=== PATIENT | male | born 1960 | race Caucasian/White ===

== ENCOUNTER 2022-09-16 12:57 | Outpatient (CLI) | payer OTHER, SELFPAY ==
--- NOTE | 2022-09-16 13:25 | ECG_ITS ---
Measurements Intervals [place] Rate: 73 P: 6 AR: 131 QRS: -12 QRSD: 94 T: 2 QT: 376 QTc: 415 Interpretive Statements SINUS RHYTHM NO PREVIOUS ECG AVAILABLE FOR COMPARISON Electronically Signed On 09-16-2022 15:32:21 CDT by Lisy Cosme M.D.
[2022-09-16 14:03] LABS: Anion Gap 12 mmol/L (8-16); Blood Urea Nitrogen 15 mg/dL (9-20); Calcium 8.9 mg/dL (8.4-10.2); Carbon Dioxide 23 mmol/L (22-30); Chloride 104 mmol/L (98-107); Estimated Glomerular Filt Rate > 60; Glucose 109 mg/dL (65-110); Potassium 4.3 mmol/L (3.4-5.0); Sodium 139 mmol/L (137-145)
== END 2022-09-16 12:58 | disposition home or self-care (01) ==
PROVIDERS: Referring Provider Urology; Visit Provider Anesthesiology
DX: Z01.818 Encounter for other preprocedural examination (principal); N35.919 Unspecified urethral stricture, male, unspecified site; I10 Essential (primary) hypertension; E11.9 Type 2 diabetes mellitus without complications
CPT/HCPCS: 36415; 80048; 87086; 87088; 93005

== ENCOUNTER 2022-09-21 01:59 | Day surgery (SDC) | payer OTHER, SELFPAY ==
[2022-09-15 15:05] VITALS: BMI 31.8
--- NOTE | 2022-09-15 15:48 | PC.NURSE ---
Report to the Outpatient Waiting Room, entrance under the green pavilion located off [facility], at time 0600 on date _09/21/22. Planned Procedure Time: _0730. Time changes happen often and if your time is changed the preop area will call you the afternoon before. - You and your visitor will be asked to self-screen and do not enter if you have any COVID symptoms. - A mask is optional within the hospital at this time. Patients may have clear liquids (water, carbonated beverages, clear teas, apple juice) until 3 hours prior to surgery with a maximum of 20 ounces. - No food from midnight until time of surgery - Infants may have breast milk until 4 hours before surgery, formula 6 hours prior to surgery. - Children will be allowed to drink immediately following surgery. If applicable, please bring a bottle or sippy cup to assist with drinking. Juice, water, soda, and popsicles are readily available. For infants on formula, please bring formula the day of surgery. Pacifiers are allowed. Take the following medications with a SIP of water the morning of surgery: n/a DO NOT STOP ANY OF YOUR OTHER PRESCRIPTION MEDICATIONS PRIOR TO SURGERY ?EXCEPT THE FOLLOWING Medications to discontinue per physician __vitamins, supplements Date to take last dose_09/18/22_ Please no make-up, nail pashto, hairspray, perfume, deodorant, or body powder the day of surgery. No jewelry (including any body piercings) or valuables the day of surgery, leave them at home. Please take a shower or bath the night before, or the morning of, surgery with an antibacterial soap. Wear comfortable, loose fitting clothing. Children are encouraged to wear pajamas. - Jewelry must be removed prior to entering the operating room. Rings and piercings that are not removed may be cut off. - The hospital will not accept responsibility for valuables. - Please leave all valuables, including medications, at home the day of surgery. If you are going home after surgery, a licensed ups driver must drive you home. - NO public transportation without another adult if you receive anesthesia. - We recommend that an adult stay with you for 24 hours following discharge. - We also recommend that you do not drive, make important decision, drink alcoholic beverages, or take any drugs that were not prescribed by your health care provider for at least 24 hours after your discharge time. For Pediatric surgeries, we recommend two adults accompany the child home. Follow any additional instructions given to you from your surgeon. If you or anyone in your household have experienced Covid symptoms in the past week, please notify your surgeon or the nurse liaison at the phone number below for possible testing. Telephone instructions given to Domo Noel and asked if any additional questions and then verbalized understanding. Patient advised to call surgeon office or pre surgery nurse liaison [phone] if any additional questions.
--- NOTE | 2022-09-20 14:25 | WPDANESEPPF ---
Anes - Initial Pre Proc Eval Procedure: Operation Date: 09/21/22 07:30 Proposed Procedures p Cystoscopy, Retrograde Urethrogram, Urethral Dilatation - Hong Brown MD Date/Time: 09/20/22 14:25 Surgeon: Hong Brown MD Pre Op Diagnosis: urethral stricture, bph Patient Data Age: 62 Gender: M Height: 1.73 m Weight: 95 kg Allergies Allergy/AdvReac Type Severity Reaction Status Date / Time No Known Allergies Allergy Verified 09/15/22 14:56 Home Medications Medication Instructions Recorded Confirmed Type finasteride 5 mg tablet 5 mg PO DAILY 09/15/22 09/15/22 History fluoxetine 40 mg capsule 40 mg PO DAILY 09/15/22 09/15/22 History lancets (Accu-Chek Fastclix Lancet 09/15/22 09/15/22 History Drum) lisinopril 40 mg tablet 40 mg PO DAILY 09/15/22 09/15/22 History metaxalone 800 mg tablet 800 mg PO DAILY 09/15/22 09/15/22 History metformin 500 mg tablet 1,000 mg PO BID 09/15/22 09/15/22 History multivitamin with minerals-folic 1 tablet PO DAILY 09/15/22 09/15/22 History acid 200 mcg chewable tablet (Adult Multivitamin Gummies) pantoprazole 20 mg tablet,delayed 20 mg PO DAILY 09/15/22 09/15/22 History release rosuvastatin 20 mg tablet 20 mg PO DAILY 09/15/22 09/15/22 History semaglutide 2 mg/dose (8 mg/3 mL) 2 mg subcut WEEKLY 09/15/22 09/15/22 History subcutaneous pen injector (Ozempic) vitamin B complex (B 1 tablet PO DAILY 09/15/22 09/15/22 History Complex-Vitamin B12 tablet) Results Review: All pre-operative results and documents have been reviewed as part of the pre-operative evaluation. [facility] Past Medical History Medical History (Updated 09/20/22 @ 14:26 by Suraj Allen MD) Chronic GERD Depression Diabetes HTN (hypertension) Hyperlipidemia Obesity STEPHEN (obstructive sleep apnea) Osteoarthritis Social History Social History Smoking packs per day: 1 Smoking cigarettes per day: 20.0 Years smoked: 10 Smoking pack-years: 10.00 Smoking status: Former smoker Tobacco type: cigarettes Alcohol intake: current Drinks per week: 2 Substance use: never Living arrangements: with family Spiritual care concerns: No Anes - Eval Final PreProcedure Day of Procedure 09/20/22 14:25 Patient weight: obese Heart: regular rate and rhythm Lungs: clear to auscultation and normal air movement Airway: Mallampati scale class II Neurological: alert and oriented Last oral intake: >/= 8 hours ASA classification: III Emergent: no Anesthetic plan: proceed Anesthesia type and monitoring: general LMA Results Review: All pre-operative results and documents have been reviewed as part of the pre-operative evaluation. Informed Consent: The patient's anesthetic plan and its attendant risks and benefits were discussed with the patient/family/POA. Questions were solicited and answers provided to the satisfaction of the patient/family/POA.
[2022-09-21] VITALS (7 sets, daily range): BP systolic 119–144; BP diastolic 72–92; PULSE 75–81; RESP 12–14; TEMP 36.1–36.2; O2SAT 96–100
--- NOTE | ~2022-09-21 | XR_ITS ---
EXAMINATION: XR urethrocystogram DATE: 09/21/2022 08:04 INDICATION: Urethral stricture. TECHNIQUE: 46 intraoperative fluoroscopic images of the pelvis were obtained. I was not present. Fluo roscopy exposure time was 43 seconds. COMPARISON: None. FINDINGS: There is a stricture of the bulbar urethra. Images demonstrate a dilator in the urethra. IMPRESSION: 1. Stricture of the bulbar urethra status post dilatation. Reviewed, dictated and finalized at location A.
[2022-09-21 06:39] LABS: Glucose Point of Care 93 mg/dl (65-105)
--- NOTE | 2022-09-21 06:52 | P.PNAN_ITS ---
Anes - Initial Pre Proc Eval Procedure: Operation Date: 09/21/22 07:30 Proposed Procedures p Cystoscopy, Retrograde Urethrogram, Urethral Dilatation - Hong Brown MD Date/Time: 09/21/22 06:52 Surgeon: Hong Brown MD Pre Op Diagnosis: urethral stricture, bph Patient Data Age: 62 Gender: M Height: 1.73 m Weight: 95 kg Allergies Allergy/AdvReac Type Severity Reaction Status Date / Time No Known Allergies Allergy Verified 09/15/22 14:56 Home Medications Medication Instructions Recorded Confirmed Type finasteride 5 mg tablet 5 mg PO DAILY 09/15/22 09/15/22 History fluoxetine 40 mg capsule 40 mg PO DAILY 09/15/22 09/15/22 History lancets (Accu-Chek Fastclix Lancet 09/15/22 09/15/22 History Drum) lisinopril 40 mg tablet 40 mg PO DAILY 09/15/22 09/15/22 History metaxalone 800 mg tablet 800 mg PO DAILY 09/15/22 09/15/22 History metformin 500 mg tablet 1,000 mg PO BID 09/15/22 09/15/22 History multivitamin with minerals-folic 1 tablet PO DAILY 09/15/22 09/15/22 History acid 200 mcg chewable tablet (Adult Multivitamin Gummies) pantoprazole 20 mg tablet,delayed 20 mg PO DAILY 09/15/22 09/15/22 History release rosuvastatin 20 mg tablet 20 mg PO DAILY 09/15/22 09/15/22 History semaglutide 2 mg/dose (8 mg/3 mL) 2 mg subcut WEEKLY 09/15/22 09/15/22 History subcutaneous pen injector (Ozempic) vitamin B complex (B 1 tablet PO DAILY 09/15/22 09/15/22 History Complex-Vitamin B12 tablet) Laboratory Tests 09/21/22 06:37 POC Capillary Glucose 93 mg/dl (65-105) Patient hx anesthesia problems: none Family hx anesthesia problems: none Results Review: All pre-operative results and documents have been reviewed as part of the pre- operative evaluation. [facility] Past Medical History Medical History Chronic GERD Depression Diabetes HTN (hypertension) Hyperlipidemia Obesity STEPHEN (obstructive sleep apnea) Osteoarthritis Social History Social History Smoking packs per day: 1 Smoking cigarettes per day: 20.0 Years smoked: 10 Smoking pack-years: 10.00 Smoking status: Former smoker Tobacco type: cigarettes Alcohol intake: current Drinks per week: 2 Substance use: never Living arrangements: with family Spiritual care concerns: No Anes - Eval Final PreProcedure Day of Procedure 09/21/22 06:52 Patient weight: obese Heart: regular rate and rhythm Lungs: clear to auscultation Airway: Mallampati scale class II Neurological: alert and oriented Last oral intake: >/= 8 hours ASA classification: III Emergent: no Anesthetic plan: proceed Anesthesia type and monitoring: general LMA and standard monitoring Results Review: All pre-operative results and documents have been reviewed as part of the pre- operative evaluation. Informed Consent: The patient's anesthetic plan and its attendant risks and benefits were discussed with the patient/family/POA. Questions were solicited and answers provided to the satisfaction of the patient/family/POA.
[2022-09-21] MEDS: LACTATED RINGERS 1,000 ML 30 ML IV CONT (07:13)
--- NOTE | 2022-09-21 07:20 | WPDHPUPDATE1 ---
History and Physical Update Update Date/Time: 09/21/22 07:20 History and Physical has been reviewed, including an updated exam of the patient. There are NO changes in the patient's condition. Risks, benefits, and alternatives have been discussed and questions answered. Patient agrees to proceed with procedure. Proceed with cystoscopy, retrograde urethrogram, urethral dilation
[2022-09-21] MEDS: ceFAZolin 2 GM/D5W 50 ML 2 GM/50 ML BAG IVPB (07:35)
[2022-09-21] MEDS: LIDOCAINE HCL 2% GEL UROJET 10 ML PKG MUCOUS MEM (07:50)
--- NOTE | 2022-09-21 08:03 | W.PM.PROC2 ---
Procedure Note - Detailed Date of Procedure 09/21/22 Pre-op Diagnosis urethral stricture, bph Post-op Diagnosis Same Procedure Performed Retrograde urethrogram, urethral dilatation up to 22 Russian with Amplants dilators., cystoscopy, complex Dillard catheter placement 18 Russian [place] tip Surgeon Hong Brown MD Anesthesia General Findings Mild membranous and bulbar urethral narrowings with inability to pass a 19 Russian scope. No evidence of bladder tumors. Mild lateral lobe hypertrophy Description of Procedure Patient is taken to the operative suite correctly identified. Once anesthesia was obtained he was placed in dorsal lithotomy position and prepped and draped usual sterile fashion. Sixteen Russian Dillard was inserted into the meatus. Contrast was then injected. He had some narrowings present although they were not pinpoint in nature. A 19 Russian scope was then passed. Again I could not pass the scope in. I thus placed a Super Stiff wire into the bladder. This was done under direct vision as well as fluoroscopy. Using Amplantz dilators, I dilated the urethra up to 22 Russian. Cystoscopy was then performed. He had some mild lateral lobe hypertrophy. The bladder itself was without any evidence of tumors. Both ureteral orifices normal anatomic position. 2% viscous lidocaine was then inserted into the urethra. Eighteen [place] tip catheter was placed over the guidewire. The balloon was inflated with 10 cc of normal saline. Patient tolerated procedure well without complications and was taken recovery stable condition. Will plan on Dillard catheter removal and couple days. He will follow-up in the office in 3-4 weeks time. Please send a copy of this dictation to by office Estimated Blood Loss 0 Drains Yes (Eighteen Russian [place] tip Dillard catheter) Packing No Pathology None sent Complications No immediate complications Condition Stable Disposition PACU
[2022-09-21 08:12] LABS: Glucose Point of Care 89 mg/dl (65-105)
[2022-09-21] MEDS: fentaNYL CITRATE INJ (*CRX) 100 MCG/2 ML VIAL 25 MCG IV PUSH ×3 (08:23→08:34)
[2022-09-21] MEDS: oxyCODONE HCL (*CRX) 5 MG TAB IR PO (09:11)
--- NOTE | 2022-09-21 09:55 | SUR.PHASEII ---
INSTRUCTION AND 12 ML SYRINGE GIVEN TO PATIENT AND SPOUSE IN CASE THEY DECIDE TO REMOVE THE HINDS CATHETER ON TUESDAY.
== END 2022-09-21 09:45 | disposition home or self-care (01) ==
PROVIDERS: PCP Family Medicine; Visit Provider Urology
PROC: 0T7D8ZZ Dilation of Urethra, Via Natural or Artificial Opening Endoscopic (ICD-10-PCS; CPT 52281; principal; 2022-09-21 07:30)
DX: N35.912 Unspecified bulbous urethral stricture, male (principal); N40.0 Benign prostatic hyperplasia without lower urinary tract symptoms; I10 Essential (primary) hypertension; E11.9 Type 2 diabetes mellitus without complications; E78.5 Hyperlipidemia, unspecified; G47.33 Obstructive sleep apnea (adult) (pediatric); K21.9 Gastro-esophageal reflux disease without esophagitis; F32.A Depression, unspecified; E66.9 Obesity, unspecified; Z68.31 Body mass index [BMI] 31.0-31.9, adult; Z79.84 Long term (current) use of oral hypoglycemic drugs; Z79.899 Other long term (current) drug therapy; Z87.891 Personal history of nicotine dependence
CPT/HCPCS: 52281; 36415; 51610; 74450; 80048; 82948; 87086; 87088; 93005; A9270; C1726; C1769; J0690; J2250; J2405; J2704; J3010; J7120

== ENCOUNTER 2025-01-22 07:58 | Outpatient (CLI) | payer MEDICARE, OTHER, SELFPAY ==
--- OUTSIDE RECORDS SUMMARY | 2025-01-22 08:05 | XMS_ITS | Clinical Summary ---
Author Organization [facility] Address [address] [place] [address] Care Team Providers Care Sample Grader Name Role Phone Sameera Hammonds MD Primary Care Provider [phone] Allergies No known active allergies Medications FLUoxetine (PROzac) 40 mg capsule Take 1 capsule (40 mg total) by mouth 2 (two) times a day Active rosuvastatin (CRESTOR) 20 mg tablet Take 1 tablet (20 mg total) by mouth daily Active lisinopriL (PRINIVIL,ZESTR IL) 40 mg tablet Take 1 tablet (40 mg total) by mouth daily Active prazosin (MINIPRESS) 1 mg capsule Take 1 capsule (1 mg total) by mouth nightly Active metFORMIN (GLUCOPHAGE) 500 mg tablet Take 2 tablets (1,000 mg total) by mouth 2 (two) times a day with meals Active omeprazole (PriLOSEC) 20 mg capsule Take 1 capsule (20 mg total) by mouth daily Active cetirizine (ZyrTEC) 10 mg chewable tablet Take 1 tablet (10 mg total) by mouth daily Active melatonin 10 mg tablet Active multivitamin tabletIndicatio ns:Vitamin Deficiency Prevention Take 1 tablet by mouth Active cholecalciferol 400 unit capsule Active calcium carbonate (OS-CHARLES) 648 mg (260 mg elemental) tablet 260 mg Active vitamin G36-mbvbl acid 0.5-1 mg tablet Take by mouth Active ciprofloxacin (CIPRO) 500 mg tablet Take 1 tablet (500 mg total) by mouth 2 (two) times a day 6 tablet 11/30/2023 Active traMADoL (ULTRAM) 50 mg tablet Take 1 tablet (50 mg total) by mouth every 6 (six) hours as needed for pain 10 tablet 11/30/2023 Active Active Problems Problem Noted Date Diagnosed Date Urethral stricture 11/08/2023 Surgical History Surgery Date Site/Laterality Comments SHOULDER ARTHROSCOPY Left KNEE ARTHROPLASTY Bilateral Medical History Medical History Date Comments Hypertension GERD (gastroesophageal reflux disease) Type 2 diabetes mellitus Anemia Sleep apnea Social History Tobacco Use Types Packs/Day Years Used Date Smoking Tobacco: Never Smokeless Tobacco: Never Tobacco Cessation:Counseling Given: Not Answered AUDIT-C Answer Date Recorded Q1: How often do you have a drink containing alc ohol? 2-3 times a week 11/30/2023 Q2: How many drinks containi ng alcohol do you have on a typical day when you are drinking? 1 or 2 11/30/2023 Q3: How often do you have si x or more drinks on one occasion? Less than monthly 11/30/2023 Personal Safety Answer Date Recorded Have you ever been in or are you currently in a harmful physical or emotional relationship or is someone making you feel afraid or unsafe? Denies 11/30/2023 Sex and Gender Information Value Date Recorded Sex Assigned at Not on file Legal Sex Male 11:33 AM CDT Gender Identity Not on file Sexual Orientation Not on file Obstetrics History Last Filed Vital Signs Vital Sign Reading Time Taken Comments Blood Pressure 129/81 11/30/2023 10:45 AM CDT Pulse 67 11/30/2023 10:45 AM CDT Temperature 36.6 C (97.8 F) 11/30/2023 10:00 AM CDT Respiratory Rate 14 11/30/2023 10:45 AM CDT Oxygen Saturation 96% 11/30/2023 10:45 AM CDT Inhaled Oxygen Concentration - - Weight 90.7 kg (200 lb) 11/10/2023 2:55 PM CDT Height 172.7 cm (5' 8) 11/10/2023 2:55 PM CDT Body Mass Index 30.41 11/10/2023 2:55 PM CDT Plan of Treatment Health Maintenance Due Date Last Done Comments Colon Cancer Screening-Colonoscopy 1960 Depression Screening 1960 Hepatitis C Screening 1960 Prostate Cancer Screening-PSA 1960 Abdominal Aortic Aneurysm (A AA) Screen 2023 06/29/2020, 10/11/2017, 10/11/2017, Additional history exists Well Visit 65+ 2023 Fall Risk Assessment 11/29/2024 11/30/2023 Covid-19 Vaccine (2024-2 6 season) 2024 03/01/2023, 09/03/2021, 01/15/2021, Additional history exists Influenza Vaccine (#1) 2024 , 02/09/2022, 02/19/2021, Additional history exists DTaP/Tdap/Td Vaccine (2 - Td or Tdap) 02/19/2031 02/19/2021, 05/25/2001 Hepatitis B Screening Completed 10/22/2002 , 07/10/2001, 05/25/2001 Zoster Vaccine Completed 06/25/2021, 04/21/2021 Pneumococcal vaccine 65+ Completed 03/01/2023, 03/19 Insurance MEDICARE [facility] Address: [address] [address] [place] [address] [employer] [place] Care Teams Sample Grader Relationship Specialty Start Date End Date Sameera Hammonds MD [address] [facility] [address] [place] [address] PCP - General Family Medicine 11/14/23
--- OUTSIDE RECORDS SUMMARY | 2025-01-22 08:05 | XMS_ITS | Clinical Summary ---
Author Organization [facility] Address [address] [place] [address] Phone Care Team Providers Care Neuro Ophthalmologist Name Role Phone Sameera Hammonds MD Primary Care Provider [phone] Kirk Sanchez MD Unavailable [phone] Allergies Active Allergy Reactions Criticality Noted Date Comments Pollen Extract Unknown 06/23/2020 Medications Blood Glucose Monitoring Suppl (Accu-Chek Guide Me) w/Device Kit 1 Each by Does not apply route. 08/28/2024 Active Cetirizine HCl 10 MG Chewable Tablet Take 10 mg by mouth daily. Active Cobalamin Combinations (Vitamin P42-Uvhqn Acid) 500-400 MCG Tablet Take by mouth. Active FLUoxetine (PROzac) 40 MG Capsule 08/01/2023 Active lisinopril (PRINIVIL, ZESTRIL) 40 MG Tablet Take 40 mg by mouth daily. 06/20/2024 Active metaxalone (SKELAXIN) 800 MG Tablet Take 800 mg by mouth. 08/20/2024 Active metFORMIN (GLUCOPHAGE) 500 MG Tablet Take 1,000 mg by mouth. 06/20/2024 Active multi-vitamins (Multi-Vitamin) Tablet Take 1 Tablet by mouth. Active pantoprazole (PROTONIX) 20 MG Tablet Delayed Response 20 mg. 01/23/2022 Active prazosin (MINIPRESS) 1 MG Capsule Take 1 mg by mouth. 06/20/2024 Active rosuvastatin (CRESTOR) 20 MG Tablet Take 20 mg by mouth. 06/20/2024 Active Active Problems Problem Noted Date Diagnosed Date Anemia 09/11/2024 Family History Medical History Relation Name Comments Heart Attack Brother Stroke Brother Chronic Obstructive Pulmonary Disease Father Heart Disease Father Chronic Obstructive Pulmonary Disease Mother Diabetes Mother Liver Cancer Sister Relation Name Status Comments Brother Father Mother Sister Social History Tobacco Use Types Packs/Day Years Used Date Smoking Tobacco: Former Cigarettes Smokeless Tobacco: Never Tobacco Cessation:Counseling Given: Not Answered Alcohol Use Standard Drinks/Week Comments Yes 3 (1 standard drink = 0.6 oz pur e alcohol) Sex and Gender Information Value Date Recorded Sex Assigned at Not on file Legal Sex Male 1:47 PM CDT Gender Identity Not on file Sexual Orientation Not on file Last Filed Vital Signs Vital Sign Reading Time Taken Comments Blood Pressure 125/78 10/02/2024 10:47 AM CDT Pulse 97 10/02/2024 10:47 AM CDT Temperature 36.9 C (98.4 F) 10/02/2024 10:47 AM CDT Respiratory Rate 8 10/02/2024 10:47 AM CDT Oxygen Saturation 97% 10/02/2024 10:47 AM CDT Inhaled Oxygen Concentration - - Weight 99 kg (218 lb 3.2 oz) 10/02/2024 10:47 AM CDT Height 172.7 cm (5' 8) 10/02/2024 10:47 AM CDT Body Mass Index 33.18 10/02/2024 10:47 AM CDT Plan of Treatment Health Maintenance Due Date Last Done Comments Cologuard 2003 Colonoscopy 2003 Colorectal Cancer Screening 2003 Immunochemical Fecal Occult Blood 2003 PSA Discussion 2013 AAA Screening Ultrasound 2023 Medicare Initial AWV [id number] 2024 Influenza Immunization (#1) 2024/, 02/09/2023, 02/09/2022, Additional history exists SARS-COV-2 Immunization ( season) 2024 01/16/2024, 03/01/2023, 09/03/2021, Additional history exists Hepatitis B Immunization Completed 003, 07/10/2001, 05/25/2001 TdaP Immunization Completed 02/19/2021 Hepatitis C Virus (HCV) Screening Completed 02/25/2021 Zoster Immunization Completed 06/25/2021, Pneumococcal Immunization (50+ years) Completed 03/01/2023, 04/15/2015 Respiratory Syncytial Virus (RSV) Immunization (Adult) Completed 03/01/2023 Human Papillomavirus (HPV) Immunization Aged Out No longer eligible based on patient's age to complete this topic Meningococcal Immunization (ACWY) Aged Out No longer eligible based on patient's age to complete this topic Rotavirus Immunization Aged Out No lo nger eligible based on patient's age to complete this topic Insurance MEDICARE [facility] Care Teams Neuro Ophthalmologist Relationship Specialty Start Date End Date Sameera Hammonds MD [address] [address] PCP - General Internal Medicine 08/27/24 Kirk Sanchez MD [place] [id number] Consulting Physician Oncology 08/27/24
--- NOTE | 2025-02-14 08:35 | WPDSLEEPSTUD ---
Sleep Study Date of Study: 01/22/25 Ordering Provider: Elenita Denise, JUAN Interpreting Physician: Rosalia Perez DO Sleep Study Type: CPAP Titration Height: 1.73 m Weight: 95.254 kg Body Mass Index: 31.9 Neck Circumference (inches): 18 Tibbie: 12 Reason for Sleep Study Daytime hypersomnia Sleep History The patient is a 65-year-old male that had a sleep study ordered by his ENT for evaluation of sleep apnea. The patient denies awakening from sleep short of breath. He frequently awakens at night with heartburn, belching or cough. He rarely snores and is rarely loud enough that others complain. He rarely has trouble sleeping when he has a cold. He rarely wakes up gasping for air throughout the night. He rarely has breathing problems at night observed by himself or others. He frequently sweats excessively at night. He occasionally has heart palpitations or irregular heartbeats during the night. He occasionally falls asleep during the day but never while driving. He denies sleep paralysis and cataplexy. He occasionally has trouble at school or work due to sleepiness. He occasionally experiences vivid dreamlike scenes upon awakening or falling asleep. He rarely feels afraid of going to sleep. He occasionally has nightmares. He rarely remembers his dreams. He constantly has thoughts racing through his mind. He frequently feels sad, depressed and anxious. He rarely has muscular tension. He occasionally notices parts of his body jerk. He occasionally kicks during the night. He rarely has crawling and aching feelings in his legs but occasionally has leg pain during the night. He denies grinding his teeth during sleep and denies awakening with morning jaw pain. He is frequently bothered by pain during the day and frequently awakened by pain during the night. He occasionally wakes up feeling stiff in the morning. He occasionally wakes up with sore or achy muscles. He occasionally wakes up with pain in the neck, spine or other joints. He goes to bed between 9-10 p.m. every night. It takes him 30 minutes up to 3 hours to fall asleep. He wakes up 3-6 times throughout the night for unknown reasons and it can take up to an hour to fall back asleep. He wakes up between 6-730 a.m. every morning. He typically gets 6-8 hours of sleep total per night. He will stay in bed for a few minutes after waking up in the morning. He currently lives with his . He denies consuming any caffeinated beverages within 2 hours of bedtime. He denies engaging in physical exercise before bedtime. He will watch television before falling asleep. He will take naps in afternoon or the evening but they are not refreshing. He consumes 2 caffeinated beverages every morning. He quit smoking cigarettes 42 years ago. He consumes 2-4 glasses of wine per night. He denies recreational drug use. [facility] Past Medical History Medical History Depression Diabetes Osteoarthritis Chronic GERD Obesity STEPHEN (obstructive sleep apnea) HTN (hypertension) Hyperlipidemia Social History Social History Smoking packs per day: 1 Smoking cigarettes per day: 20.0 Years smoked: 10 Smoking pack-years: 10.00 Smoking status: Former smoker Tobacco type: cigarettes Alcohol intake: current Drinks per week: 2 Substance use: never Living arrangements: with family Spiritual care concerns: No Medications Home Medications ?Medication ?Instructions ?Recorded ?Confirmed ?Type finasteride 5 mg tablet 5 mg PO DAILY 09/15/22 09/15/22 History fluoxetine 40 mg capsule 40 mg PO DAILY 09/15/22 09/15/22 History lancets (Accu-Chek Fastclix Lancet 09/15/22 09/15/22 History Drum) lisinopril 40 mg tablet 40 mg PO DAILY 09/15/22 09/15/22 History metaxalone 800 mg tablet 800 mg PO DAILY 09/15/22 09/15/22 History metformin 500 mg tablet 1,000 mg PO BID 09/15/22 09/21/22 History multivitamin with minerals-folic 1 tablet PO DAILY 09/15/22 09/15/22 History acid 200 mcg chewable tablet (Adult Multivitamin Gummies) pantoprazole 20 mg tablet,delayed 20 mg PO DAILY 09/15/22 09/21/22 History release rosuvastatin 20 mg tablet 20 mg PO DAILY 09/15/22 09/15/22 History semaglutide 2 mg/dose (8 mg/3 mL) 2 mg subcut WEEKLY 09/15/22 09/15/22 History subcutaneous pen injector (Ozempic) vitamin B complex (B 1 tablet PO DAILY 09/15/22 09/15/22 History Complex-Vitamin B12 tablet) Sleep Procedure A full night CPAP Titration using the [employer] SleepSay2me multi-channel system recorded the standard physiologic parameters including EEG, EOG, submentalis EMG, anterior tibialis EMG, EKG, body position, nasal and oral airflow using nasal pressure sensor and thermistor.? Respiratory parameters of chest and abdominal movements were recorded with Respiratory Inductance Plethysmography belts. Oxygen saturation was recorded by pulse oximetry. Video monitoring was also performed. Sleep stages, periodic limb movements, and EEG arousals were scored in 30 second epochs according to the criteria of the AASM Scoring Manual. The Apnea-Hypopnea Index was calculated using [facility] guidelines for definition of hypopnea with 4% O2 desaturations while scoring respiratory events. Sleep Architecture The total recording time was 456.0 minutes.? The total sleep time was 283.0 minutes. Sleep latency was 49.6 minutes. REM latency was 117.0 minutes. Sleep efficiency was 62.1%. The patient had 35 awakenings for an awakening index of 7.4. Wake after Sleep Onset time was 123.0 minutes. The patient spent 45.5 minutes, 16.1% of total sleep time in Stage N1. The patient spent 201.5 minutes, 71.2% in Stage N2. The patient spent 0.5 minutes, 0.2% in Stage N3. The patient spent 35.5 minutes, 12.5% in Stage REM. Respiratory Analysis The patient had 17 hypopneas for an overall Apnea Hypopnea Index of 3.0 events per hour. The REM Apnea Hypopnea Index was 0. The NREM Apnea Hypopnea Index was 3.4. The patient had a Central Apnea Hypopnea Index of 0. There was no evidence of Venkatesh-Torres Respirations. The patient was started on CPAP 9 cm H2O and titrated to CPAP 14 cm H2O. The patient was able to fall asleep starting on CPAP 9 cm H2O. The patient was able to achieve REM sleep starting on CPAP 10 cm H2O. On CPAP 14 cm H2O, the patient spent 102.5 minutes in NREM and 27 minutes in REM with 2 hypopneas, resulting in an AHI of 0.9. The patient had a sleep efficiency of 89.3% on this pressure setting. Arousals There were 135 total arousals for an arousal index of 28.6. There were 89 spontaneous arousals for an index of 18.9. ?There were 3 arousals due to respiratory events for an index of 0.6. There were 34 arousals due to periodic limb movements for an index of 7.2.? There were 10 arousals due to isolated limb movements for an index of 2.1. Periodic Limb Movements The patient had 52 isolated limb movements with an index of 11.0. The patient had 184 periodic limb movements with index of 39.0, which is elevated (normal < 15). Patient had a total of 236 limb movements with a total limb movement index of 50.0. Oximetry Data The patient had an average oxygen saturation of 94.6% in sleep with a minimum oxygen saturation of 86.0% and a maximum oxygen saturation of 98.0%. The patient had 20 oxygen desaturations that were 4% or greater resulting in an Oxygen Desaturation Index of 4.2.? The patient spent 3 minutes, 0.7% of total sleep time with an oxygen saturation below 88%. Snoring Profile Snoring was not present throughout the study. Cardiac Profile The EKG showed normal sinus rhythm. No arrhythmias or premature beats were seen. The patient had an average pulse rate of 75.1 bpm with a minimum pulse rate of 65.0 bpm and a maximum pulse rate of 98.0 bpm. ? EEG Profile No signs of seizure activity seen. Assessment and Plan Assessment and Plan (1) STEPHEN (obstructive sleep apnea): Code(s): G47.33 - Obstructive sleep apnea (adult) (pediatric) Status: Acute Assessment and Plan: The patient was started on CPAP 9 cm H2O and titrated to CPAP 14 cm H2O. The patient's sleep apnea resolved on the final pressure setting. I recommend that the patient be prescribed CPAP 14 cm H2O, size medium Resmed AirFit F20 full face mask, CPAP filters/tubing and heated humidity. This should be used with all episodes of sleep.? Compliance should be reviewed within 31-90 days of starting therapy for usage greater than 4 hours per night greater than 70% of the nights. The patient should be asked about symptoms such as?excessive daytime sleepiness, quality of sleep, decreased nocturia, increased?mental functioning such as memory, mood, and concentration. Data The data obtained during this sleep study is adequate for interpretation. Certification This sleep study has been reviewed by a board certified sleep medicine physician.
[2025-02-19 14:43] VITALS: BMI 31.9
== END 2025-01-23 06:45 | disposition home or self-care (01) ==
LOC: ANHCSM 07:58
PROVIDERS: PCP Family Medicine; Visit Provider Internal Medicine Interventional Cardiology
DX: G47.33 Obstructive sleep apnea (adult) (pediatric) (principal)
CPT/HCPCS: 95811